=== PATIENT | female | born 1970 | race Caucasian/White ===

== ENCOUNTER → 2017-07-11 | Outpatient (CLI) | payer MEDICAID ==
[~2017-07-11] MED LIST: ALBUTEROL2 PUFFS/17 IN; BACTRIM DS 8001 TAB PO; BACTROBAN2% TP; BENADRYL ALLERG25 M3 PO; BENZTROPINE 1MG1 MG PO; BIPOLAR MED PO; BUPROPION HYDR150 M1 PO; CITIRIZINE PO; COGENTIN GENERIC1 MG PO; CYCLOBENZAPRINE10 M3 PO; DARVOCET-N 1001 EACH PO; DICLOFENAC 50MG50 MG PO; DOXYCYCLINE MO100 MG PO; FLUOXETINE20 MG PO; GENTAMICIN O5 ML/BOT OP; GEODON80 MG PO; KEFLEX 500MG.500 MG PO; LATUDA80 MG PO; LEVAQUIN500 MG PO; LISINOPRIL 20MG20 MG PO; MEDROL 4MG. DOSE4 MG PO; MOTRIN600 MG PO; NAPROSYN 375MG375 MG PO; NAPROXEN375 MG PO; NEIGHBOR P PO; NEXIUM20 MG PO; OMEPRAZOLE40 MG PO; PRAVACHOL20 MG PO; PRINIVIL20 MG PO; RANITIDINE150 M1 PO; SEPTRA DS 800 M1 TAB PO; SILVADENE CR 2020 GM EX; SYMBICORT1 AE1 IH; TRIMETHOPRIM W/1 TAB PO; TYLENOL/COD #31 EACH PO; VENTOLIN H0.09 MG/AC IH; WELLBUTRIN 150150 MG PO; ZIPRASIDONE HCL80 MG PO; ZYRTEC 10MG TAB10 MG PO
[2017-07-11 13:05] LABS: LYMPH # 2.1 K/mm3 (0.7-4.5); LYMPH % 21.6 % (10-50.0)
[2017-07-11 14:09] LABS: HEMOGLOBIN 12.1 g/dL (12.2-16.2)
[2017-07-11 16:21] LABS: BUN 14 mg/dL (7-18)
[2017-07-11 16:25] LABS: GFR (ESTIMATED) 53 ML/MIN (59-)
== END ==
LOC: LAB 12:43
PROVIDERS: Nurse Practitioner Family
DX: I10 Essential (primary) hypertension (principal); E78.5 Hyperlipidemia, unspecified; F31.70 Bipolar disorder, currently in remission, most recent episode unspecified; J44.9 Chronic obstructive pulmonary disease, unspecified